=== PATIENT | male | born 1980 | race Caucasian/White ===

== ENCOUNTER 2024-01-25 11:52 | Emergency (ER) | payer OTHER, SELFPAY ==
[2024-01-25 12:05] VITALS: BP 126/70; PULSE 95; RESP 16; TEMP 36.6; O2SAT 98
--- NOTE | 2024-01-25 12:05 | ED.GENADULT ---
HPI - General Adult General Chief complaint: Upper Respiratory Infection Stated complaint: Ears hurt, sore throat Time Seen by Provider: 01/25/24 12:05 43-year-old male patient presents to the [facility] with complaints of head cold symptoms and sore throat. Patient states he has had cold symptoms and drainage about 2 days ago and today his sore throat has gotten worse. Denies fevers, body aches or chills. Patient states he has taken some [id number] DayQuil for his symptoms. Source: patient Mode of arrival: ambulatory Limitations: no limitations Related Data Home Medications Medication Instructions Recorded Confirmed semaglutide 0.25 mg or 0.5 mg (2 0.5 mg subcut WEEKLY 01/25/24 01/25/24 mg/3 mL) subcutaneous pen injector (Ozempic) Allergies Allergy/AdvReac Type Severity Reaction Status Date / Time No Known Allergies Allergy Mild Verified 01/25/24 11:53 Review of Systems Review of Systems: CONSTITUTIONAL: Denies fever, chills, or sweats. EYES: Denies visual changes, redness, or discharge. ENT: Positive rhinorrhea, congestion, sore throat, and bilateral otalgia. CARDIOVASCULAR: Denies chest pain, palpitations, or edema. RESPIRATORY: Denies cough or dyspnea. GASTROINTESTINAL: Denies abdominal pain, nausea, vomiting, or diarrhea. GENITOURINARY: Denies dysuria or hematuria. SKIN: Denies rash or itching. MUSCULOSKELETAL: Denies back pain, joint pain, or myalgia. NEUROLOGIC: Denies headache, numbness, or weakness. PSYCHIATRIC: Denies anxiety or depression. PMFSH Comments At the time of my signature I agree with nursing past medical history, surgical, social, and family history. There is no relevant family history pertinent to the presenting complaint. Exam Narrative: GENERAL: Well-appearing, well-nourished, and in no acute distress. HEAD: Normocephalic, atraumatic. EYES: PERRLA and EOMI. ENT: Nares with erythema edema noted bilaterally, clear rhinorrhea no epistaxis. Mucous membranes moist. posterior pharynx with 3+ tonsillar enlargement noted bilaterally. No exudates noted. Bilateral TMs look slightly injected. NECK: Supple. No lymphadenopathy CHEST: Clear to auscultation. No respiratory distress. HEART: Regular rate and rhythm. No murmur heard. Normal peripheral pulses. ABDOMEN: Soft, nontender, nondistended, normal active bowel sounds. EXTREMITIES: Normal range of motion. No edema. SKIN: Warm, dry, no rash. NEURO: No focal deficits. Alert and oriented x3. Course Course Level of Care: Express Care Visit Reevaluation(s) Reevaluation #1: notify patient he is positive today COVID stable totally symptom-free free for 24 hours. Patient was requesting something for large tonsils so we went ahead and prescribed him a Medrol Dosepak to help with tonsillar enlargement pain. Date: 01/25/24 Time: 12:22 Vital Signs Vital signs: Vital Signs Temperature 36.6 C 01/25/24 12:05 Pulse Rate 95 01/25/24 12:05 Respiratory Rate 16 01/25/24 12:05 Blood Pressure 126/70 01/25/24 12:05 Pulse Oximetry 98 01/25/24 12:05 Oxygen Delivery Room Air 01/25/24 12:05 Temperature 36.6 C 01/25/24 12:05 Pulse Rate 95 01/25/24 12:05 Respiratory Rate 16 01/25/24 12:05 Blood Pressure 126/70 01/25/24 12:05 Pulse Oximetry 98 01/25/24 12:05 Oxygen Delivery Room Air 01/25/24 12:05 Vital signs reviewed. Medical Decision Making MDM Narrative Medical decision making narrative: Plan care patient is to test him today for strep if that is negative will most likely test for COVID and influenza. Differential Diagnosis Differential Diagnosis: Differential diagnosis: Allergic rhinitis, chronic sinusitis, tonsillitis, acute sinusitis, infectious mononucleosis, seasonal influenza, pertussis, diphtheria, meningococcal disease, viral syndrome, viral bronchitis, RSV, COVID-19 Vital Signs Vital Signs: Vital Signs Temperature 36.6 C 01/25/24 12:05 Pulse Rate 95
[2024-01-25 12:19] LABS: EDSTREPNEGPOS1 Presumptive Negative
[2024-01-25 12:30] LABS: EDINFLUASCREEN Negative; EDINFLUBSCREEN Negative
== END 2024-01-25 12:21 | disposition home or self-care (01) ==
PROVIDERS: Emergency Provider Nurse Practitioner Family
DX: U07.1 COVID-19 (principal); J03.90 Acute tonsillitis, unspecified; E11.9 Type 2 diabetes mellitus without complications
CPT/HCPCS: 87081; 87426; 87804; 87880; 99203; G0463